=== PATIENT | male | born 1970 | race Two or more races ===

== ENCOUNTER 2018-11-26 12:45 | Emergency (ER) | payer MEDICAID ==
[~2018-11-26] VITALS: Ht 162.6 cm; Wt 99.8 kg
[~2018-11-26 12:45] MED LIST: ZES10 PO
[2018-11-26 13:03] VITALS: Ht 162.6 cm; Wt 99.8 kg
[2018-11-26 14:57] VITALS: BP 132/92
== END 2018-11-26 14:57 | disposition home or self-care (01) ==
LOC: ED 12:45
DX: S29.011A Strain of muscle and tendon of front wall of thorax, initial encounter (principal); X58.XXXA Exposure to other specified factors, initial encounter; Y93.89 Activity, other specified; Y92.89 Other specified places as the place of occurrence of the external cause; Y99.8 Other external cause status; I10 Essential (primary) hypertension
CPT/HCPCS: J1885; Q0092

== ENCOUNTER 2019-04-23 14:09 | Emergency (ER) | payer SELFPAY ==
[~2019-04-23] VITALS: Ht 162.6 cm; Wt 111.1 kg
[2019-04-23 14:28] VITALS: Ht 162.6 cm; Wt 111.1 kg
[2019-04-23 15:01] LABS: BASOPHIL % 0.4 % (0-2); PLATELET COUNT 145 x10^3mcL (130-400); RED CELL DISTRIBUTION WIDTH 13.1 % (11.5-14.5)
[2019-04-23 15:11] LABS: CALCIUM 8.9 mg/dL (8.5-10.1); CHLORIDE SERUM 104 mmol/L (98-107); CREATININE SERUM 0.9 mg/dL (0.7-1.3); GFR1 > 60 mL/min; GLUCOSE SERUM 98 mg/dL (74-106); POTASSIUM SERUM 3.7 mmol/L (3.5-5.1); SODIUM SERUM 143 mmol/L (136-145)
[2019-04-23 15:17] LABS: ALBUMIN 3.8 g/dL (3.4-5.0); ALKALINE PHOSPHATASE 97 U/L (46-116); ALT/SGPT 80 U/L (16-63); AST/SGOT 43 U/L (15-37); BILIRUBIN TOTAL 0.6 mg/dL (0.20-1.00); CHOLESTEROL 148 mg/dL (<200); PHOSPHOROUS 3.8 mg/dL (2.5-4.9); TOTAL PROTEIN, SERUM 7.1 g/dL (6.4-8.2)
[2019-04-23 15:31] LABS: HDL CHOLESTEROL 27 mg/dL (40-60)
[2019-04-23 16:22] LABS: microscopic required? NO
[2019-04-23 16:48] LABS: UA SPECIFIC GRAVITY 1.025 (1.005-1.035); urine erythrocyte NEGATIVE (NEGATIVE)
[2019-04-23 17:45] VITALS: BP 124/76
== END 2019-04-23 18:11 | disposition home or self-care (01) ==
LOC: ED 14:09
PROVIDERS: Emergency Medicine
DX: R51 Headache (principal); R07.89 Other chest pain; R42 Dizziness and giddiness; I10 Essential (primary) hypertension
CPT/HCPCS: 36415; Q0092

== ENCOUNTER 2019-05-02 09:27 | Emergency (ER) | payer MEDICAID ==
[~2019-05-02] VITALS: Ht 165.1 cm; Wt 110.2 kg
[2019-05-02 09:31] VITALS: Ht 165.1 cm; Wt 110.2 kg
[2019-05-02 11:32] VITALS: BP 114/80
== END 2019-05-02 11:32 | disposition home or self-care (01) ==
LOC: ED 09:27
DX: S43.402A Unspecified sprain of left shoulder joint, initial encounter (principal); S20.212A Contusion of left front wall of thorax, initial encounter; M54.5 Low back pain; I10 Essential (primary) hypertension; W11.XXXA Fall on and from ladder, initial encounter; Y93.89 Activity, other specified; Y92.89 Other specified places as the place of occurrence of the external cause; Y99.8 Other external cause status
CPT/HCPCS: J1885